=== PATIENT | male | born 1965 | race African-American/Black ===

== ENCOUNTER → 2017-03-28 | Outpatient (CLI) | payer BC, OTHER | LOC: HYPER 03-24 10:15 | DX: R21 Rash and other nonspecific skin eruption (principal); E03.2 Hypothyroidism due to medicaments and other exogenous substances; I27.0 Primary pulmonary hypertension; G89.21 Chronic pain due to trauma; E11.9 Type 2 diabetes mellitus without complications; E78.00 Pure hypercholesterolemia, unspecified; Z79.84 Long term (current) use of oral hypoglycemic drugs ==